=== PATIENT | female | born 1980 | race Caucasian/White ===

== ENCOUNTER 2016-08-07 12:38 | Emergency (ER) ==
[2016-08-07] MEDS ORDERED: PHENERGAN IM ONE (13:48)
[2016-08-07] MEDS ORDERED: DILAUDID IM ONE ×2 (13:48→16:15)
--- NOTE | 2016-08-07 13:49 | PROVIDER DOCUMENTATION ---
HPI-Headache - General Chief Complaint: Headache Stated Complaint: HEADACHE Time Seen by Provider: 08/07/16 13:49 Source: patient Allergies/Adverse Reactions: Patient Allergies Allergy/AdvReac Type Severity Reaction Status Date / Time codeine AdvReac Unknown Verified 12/23/15 16:10 Home Medications: Home Medication List Medication Instructions Recorded Confirmed Last Taken Type Venlafaxine E.r. [Effexor Xr] 300 mg PO DAILY 12/23/15 12/23/15 Unknown History Buspirone [Buspar] 10 mg PO 08/07/16 Unknown History Hydrocodone/APAP 7.5 mg/325 mg 1 each PO Q6H PRN PRN #10 tablet 08/07/16 Unknown Rx [Monaca-7.5] Ketorolac [Toradol] 10 mg PO Q8H PRN PRN #14 tablet 08/07/16 Unknown Rx Promethazine [Phenergan] 25 mg PO Q6H PRN PRN #10 tablet 08/07/16 Unknown Rx Rizatriptan [Maxalt] 10 mg PO 08/07/16 Unknown History - History of Present Illness-Headache Nature of Presenting Problem: 36 yof c/o migraine. Pt has hx of migraines unable to get any relief with medications at home. Unable to see PCP due to no appointment available. Headache Location: reports: frontal, temporal Quality of Pain: reports: aching, throbbing Severity: reports: severe Onset/Duration: reports: 4 days ago Timing: reports: still present, getting worse Headache Context: reports: nothing Headache History: reports: frequent headaches, history of migraines Any recent trauma/injury?: reports: none Headache severity at the maximum: moderate Preceding Symptoms: reports: visual disturbances, aura(s) Headache Exacerbated by:: reports: light, noise, movement, position Modifying Factors: improves with: nothing Associated Symptoms: reports: headache, dizziness, nausea, vomiting, vision changes Similar Symptoms Previously?: No Recently seen or treated by another doctor?: No Review of Systems - Adult - REVIEW OF SYSTEMS - ADULT Constitutional: reports: see HPI. denies: no symptoms reported, chills, fever, fatique, night sweats, weight gain, weight loss, other Eyes: reports: see HPI, blurred vision Ears, Nose, Mouth & Throat: reports: no symptoms reported. denies: see HPI, ear discharge, ear pain, hearing loss, tinnitus, epistaxis, sinus problem, nose pain, loose teeth, mouth/dental pain, mouth swelling, hoarseness, throat pain, throat swelling, other Cardiovascular: reports: no symptoms reported. denies: see HPI, chest pain, edema, heart murmur, irregular heart rate, orthopnea, palpitations, poor circulation, PND, syncope, other Respiratory: reports: no symptoms reported. denies: see HPI, chronic cough, cough, dyspnea on exertion, excessive sputum production, hemoptysis, pleurisy, shortness of breath, wheezing, other Gastrointestinal: reports: no symptoms reported. denies: see HPI, abdominal pain, hematemesis, constipation, diarrhea, difficulty swallowing, frequent heartburn, nausea, poor appetite, rectal bleeding, vomiting, other Genitourinary: reports: no symptoms reported. denies: see HPI, dysuria, discharge, frequency, flank pain, frequent UTI's, hematuria, hesitency, incontinence, urinary retention, urgency, other Musculoskeletal: reports: no symptoms reported. denies: see HPI, bone pain, back pain, frequent leg cramps, joint pain, joint swelling, muscle aches, muscle weakness, neck pain, other Integumentary: reports: no symptoms reported. denies: see HPI, hives, hair loss , itching, mole changes, nail changes, rash, skin sores/ulcer, skin thickening, other Neurological: reports: dizziness/vertigo, headache/migraines Psychiatric: reports: no symptoms reported. denies: see HPI, anxiety, anti- depressant use, alcohol/drug dependence, depression, emotional problems, insomnia, panic attacks, suicidal thoughts, other All Other Systems: Reviewed and Negative Past History - Adult - PAST MEDICAL HISTORY-ADULT Review of Records: reports: Old Records Reviewed, Nursing Assessment Review, Medications Reviewed, Social history reviewed & non-contributory. Major Childhood Illnesses: reports: denies history Cardiovascular: reports: denies history Respiratory: reports: denies history Gastrointestinal: reports: other (hernia) Obstetrical/Gynecological: reports: denies history Genitourinary: reports: denies history Musculoskeletal: reports: denies history Neurological: reports: denies history Psychiatric: reports: depression Endocrine/Immune: reports: denies history Other Conditions: reports: denies history - PRIOR SURGERIES/PROCEDURES Surgical/Procedure History: reports: hysterectomy, hernia repair - IMMUNIZATION STATUS Childhood Immunizations: See Nurse Assessment Flu Vaccine: See Nurse Assessment - FAMILY HISTORY Family History: reviewed, not pertinent Physical Exam- Neurological - Physical Exam-Neuro Initial Vital Signs Reviewed: Yes General Appearance: alert, mild distress HENMT: normocephalic/atraumatic, moist mucous membranes, normal ENT inspection, TMs normal, pharynx normal. negative: angioedema, dental decay, hearing deficit , pharyngeal erythema, tonsillar exudate, TM abnormal, TM obscurred by cerumen, frontal tenderness, maxillary tenderness, other Head Injury: no evidence of injury. negative: active bleeding, Mcginnis's Sign, contusions, ecchymosis, flap, lacerations, raccoon eyes, swelling, tenderness, other Neck: non-tender, full range of motion, supple, normal inspection. negative: Brudzinski's sign, carotid bruit, C-spine tenderness, limited range of motion, lymphadenopathy, meningismus, trachial deviation, tender lateral, tender midline , thyromegaly, other Respiratory: chest non-tender, lungs clear, normal breath sounds, no pleuratic chest pain, no respiratory distress, no accessory muscle use. negative: respiratory distress, decreased breath sounds, accessory muscle use, crackles, rales, rhonchi, stridor, wheezing, dull on percussion, prolonged expiration, pain on inspiration, plerual rub, retractions, splinting, decreased rate, increased rate, crepitus, other Cardiovascular: normal peripheral pulses, regular rate, rhythm, no edema, no gallop, no JVD, no murmur. negative: JVD, bradycardia, tachycardia, diastolic murmur, systolic murmur, gallop/S3, gallop/S4, extra beats, friction rub, irregularly irregular, PMI displaced laterally, other Abdominal Exam: normal bowel sounds, non tender, soft, no organomegaly, no pulsatile mass. negative: abdominal bruit, abnormal bowel sounds, distended, guarding, rigid, rebound, tenderness, hernia, mass, hepatomegaly, spleenomegaly , McBurney's point tenderness, Woo's sign, obturator sign, prominent aortic pulsations, psoas, Rovsing's sign, other Lymphatic: no adenopathy. negative: axilla node tender, cervical node tenderness, inguinal node tender, enlargement, striations, streaking, other Extremity: normal range of motion, non-tender, normal gait, normal inspection, no pedal edema, no calf tenderness, normal capillary refill. negative: pelvis stable, abnormal NV exam, calf tenderness, deformity, erythema, inflammation, joint effusion, pulse deficit, pedal edema, slow capillary refill, swelling, tenderness, other dietary internship Exam: normal hearing, normal speech. negative: PERRL, abnormal eye position , abnormal gag reflex, abnormal pupil position, abnormal speech, facial asymmetry, facial droop, facial paresthesias, facial weakness, gaze palsy, hearing deficit (R), hearing deficit (L), tongue deviation to R, tongue deviation to L, other Coordination/Gait: normal finger to nose, normal gait, negative Romberg's sign. negative: positive Romberg's sign, abnormal gait, ABN nose to finger (R), ABN nose to finger (L), other Motor/Sensory: no motor deficit, no sensory deficit, no pronator drift. negative: negative Babinski's sign, positive Babinski's sign, pronator drift (R) , pronator drift (L), sensory deficit, weak motor strength RUE, weak motor strength LUE, weak motor strength RLE, weak motor strength LLE, other Neurologic: dietary internship II-XII nml as tested, grossly normal, no motor/sensory deficits . negative: abnormal cerebellar tests, abnormal dietary internship II-XII, abnormal gait, aphasia, EOM palsy, facial droop, focal weakness, motor weakness, sensory deficit, negative romberg's sign, positive romberg's sign, other - Glascow Coma Scale Best Eye Response: (4) open spontaneously Best Verbal Response: (5) oriented Best Motor Response: (6) obeys commands Total Glascow Score: 15 Progress - PLAN OF CARE/RESULTS Progress/Plan/Lab Results: Orders Category Date Time Status HEAD W/O CONTRAST [CT] Stat Exams 08/07/16 14:54 Draft Dexamethasone [Decadron] Med 08/07/16 16:14 Discontinued 10 mg IM NOW ONE Hydromorphone [Dilaudid] Med 08/07/16 13:48 Discontinued 1 mg IM NOW ONE Hydromorphone [Dilaudid] Med 08/07/16 16:15 Discontinued 1 mg IM NOW ONE Promethazine [Phenergan] Med 08/07/16 13:48 Discontinued 25 mg IM NOW ONE Orders Category Date Time Status HEAD W/O CONTRAST [CT] Stat Exams 08/07/16 14:54 Draft Dexamethasone [Decadron] Med 08/07/16 16:14 Discontinued 10 mg IM NOW ONE Hydromorphone [Dilaudid] Med 08/07/16 13:48 Discontinued 1 mg IM NOW ONE Hydromorphone [Dilaudid] Med 08/07/16 16:15 Discontinued 1 mg IM NOW ONE Promethazine [Phenergan] Med 08/07/16 13:48 Discontinued 25 mg IM NOW ONE Vital Signs Temp Pulse Resp BP Pulse Ox 08/07/16 17:02 98.2 F 77 18 113/81 99 08/07/16 12:46 98 F 66 18 125/73 99 codeine Adverse Reaction (Verified 12/23/15 16:10) Unknown Venlafaxine E.r. 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 These instructions are being provided to you so you can have an understanding of how to care for yourself upon discharge. Upon discharge from the Emergency Department, you are responsible for making arrangements for follow-up care by a physician of your choice. Take all prescribed medications as directed. Return to the Emergency Department immediately for any new or worsening symptoms. You may call the Physician Referral phone number at [phone] to obtain a list of Physicians who are taking new patients. Prescriptions: Hydrocodone/APAP 7.5 mg/325 mg [Monaca-7.5] 1 each PO Q6H PRN PRN #10 tablet PRN Reason: Pain Promethazine [Phenergan] 25 mg PO Q6H PRN PRN #10 tablet PRN Reason: Nausea Ketorolac [Toradol] 10 mg PO Q8H PRN PRN #14 tablet PRN Reason: Pain Referrals: Paul Ca MD [Primary Care Provider] - Forms: Return to School/Parent Work Instructions: Acetaminophen; Hydrocodone tablets or capsules, Promethazine tablets, Ketorolac tablets Attestation - Physician/ POLO Attestation Patient care was provided by Advanced Practice Provider:: Yes Advanced Practice Provider:: Umair James Advanced Practice Provider documentation review:: The Mid-level provider documentation, treatment plan and medical decision making was reviewed by the physician who agrees with all treatment and medical decision making by the MLP. Physician Attestation - Physician Attestation I, the provider, attest to the following statement:: Umair James Physician documentation Attestation:: This documentation recorded by the scribe accurately reflects the service I personally performed and the decisions made by me.
[2016-08-07] MEDS ORDERED: DECADRON IM ONE (16:14)
[2016-08-07 17:03] VITALS: BP 113/81
--- NOTE | 2016-08-07 17:03 | Diag Imaging Result Document ---
PROCEDURE NAME: HEAD W/O CONTRAST - 08/07/[address]: COMPARISON: None. FINDINGS: The ventricles and sulci are normal in size and contour. There is no mass, hemorrhage, or evidence of acute ischemia. The bony calvaria is intact. The visualized paranasal sinuses and mastoid air cells are clear. IMPRESSION: Negative head CT.
== END 2016-08-07 17:02 | disposition home or self-care (01) ==
LOC: P.ED 12:38
DX: G43.519 Persistent migraine aura without cerebral infarction, intractable, without status migrainosus (principal); R51 Headache; F32.9 Major depressive disorder, single episode, unspecified; Z79.899 Other long term (current) drug therapy
CPT/HCPCS: 70450; 96372; J1170; J2550